=== PATIENT | male | born 1945 | race Caucasian/White ===

== ENCOUNTER 2016-09-29 10:33 | Emergency (ER) | payer MEDICARE, BC ==
[2016-09-29 10:54] VITALS: BP 136/81
--- NOTE | 2016-09-29 11:11 | EDM.PDOC ---
ED HPI Trauma - General Chief Complaint: Lower Extremity Injury/Pain Stated Complaint: PAIN BEHIND LT LEG/KNEE Time Seen by Provider: 09/29/16 11:04 Source: Reports: Patient, Family, RN notes reviewed History Limitations: Reports: No limitations - History of Present Illness INITIAL COMMENTS - FREE TEXT/NARRATIVE: 70-year-old gentleman presents emergency Department a complaint of left knee pain, he injured himself earlier today he fell off a piece of farm equipment and twisted his left knee he is experiencing pain and cannot bear weight, did not hit his head denies any loss of consciousness denies any pain other than the knee Allergies/ADRs: Allergies Sulfa (Sulfonamide Antibiotics) Allergy (Intermediate, Verified 09/29/16 10:53) bad rash Home Medications: Ambulatory Orders traZODone HCl [Trazodone HCl] 50 mg PO BEDTIME 08/07/14 [Confirmed 09/29/16] Hydrocodone/Acetaminophen [Hydrocodon-Acetaminophen 5-325] 1 tab PO ASDIRECTED 09/29/16 [Confirmed 09/29/16] Past Medical History HEENT History: Reports: Impaired vision Social & Family History - Tobacco Use Smoking Status *Q: Never Smoker Second Hand Smoke Exposure: No - Caffeine Use Caffeine Use: Reports: Coffee, Soda, Tea - Alcohol Use Days Per Week of Alcohol Use: 1 Number of Drinks Per Day: 3 Total Drinks Per Week: 3 - Recreational Drug Use Recreational Drug Use: No Review of Systems - Review of Systems Review Of Systems: See Below Constitutional: Reports: no symptoms Musculoskeletal: Reports: joint pain (left knee) Trauma Exam - Physical Exam Exam: See Below Text/Narrative:: examination of the left knee appreciate any erythema there is no edema I can't appreciate any specific joint line tenderness varus valgus maneuvers do show joint laxity however there is no pain elicited Anastasiya's is negative anterior drawer is negative Exam Limited By: No limitations General Appearance: Reports: alert, WD/WN, no apparent distress Respiratory Exam: Reports: no respiratory distress Course - Vital Signs Last Recorded V/S: Last Vital Signs Temp 99.1 F 09/29/16 10:51 Pulse 64 09/29/16 10:51 Resp 18 09/29/16 10:51 BP 136/81 09/29/16 10:51 Pulse Ox 98 09/29/16 10:51 Departure - Departure Time of Disposition: 12:12 Disposition: Home, Self-Care 01 Condition: good Clinical Impression: Strain of right knee Qualifiers: Encounter type: initial encounter Qualified Code(s): S86.911A - Strain of unspecified muscle(s) and tendon(s) at lower leg level, right leg, initial encounter Forms: ED Department Discharge Additional Instructions: use hydrocodone as needed for pain control, please followup with orthopedic clinic on of this week - Assessment/Plan Plan: Assessment Acuity = acute Site and laterality = right knee strain Etiology = secondary to trauma Manifestations = pain Location of injury = home Lab values = x-ray shows no fracture Plan : Discussed case with Dr. Quiñonez orthopedics recommended nonweightbearing crutches hydrocodone for pain control followup in orthopedic clinic on Patient was in agreement with the plan all questions were answered, they were instructed to return to the emergency department or call for worsening symptoms. This note was dictated using [employer] voice recognition software please call with any questions.
--- NOTE | 2016-09-29 11:45 | CR ---
Knee 3V Lt HISTORY: Twist injury COMPARISON: None FINDINGS: No fracture no effusion. Minimal loss of joint space in the medial compartment. No bony de structive process.
== END 2016-09-29 12:53 | disposition home or self-care (01) ==
LOC: JP.ED 10:33
DX: S86.911A Strain of unspecified muscle(s) and tendon(s) at lower leg level, right leg, initial encounter (principal); Z88.2 Allergy status to sulfonamides; Z79.899 Other long term (current) drug therapy; X50.1XXA Overexertion from prolonged static or awkward postures, initial encounter
CPT/HCPCS: 73562-26-LT; 73562-LT; 99283; 99284

== ENCOUNTER 2017-02-08 06:13 | Day surgery (SDC) | payer MEDICARE, BC ==
[2017-02-08] MEDS ORDERED: Sodium Chloride 0.9% 1,000 ML IV SCH (07:30)
[2017-02-08] MEDS ORDERED: fentaNYL 100 MCG/2 ML SDV ONE (07:37)
[2017-02-08] MEDS ORDERED: Midazolam 1 MG/ML 2 ML SDV ONE (07:37)
[2017-02-08] MEDS ORDERED: Propofol 200 MG/20 ML SDV ONE (07:37)
[2017-02-08 09:02] VITALS: BP 130/83
--- NOTE | 2017-02-08 15:41 | OR ---
DATE OF PROCEDURE: 02/08/2017 PROCEDURE: Esophagogastroduodenoscopy. FINDINGS: 1. Gastric polyp, completely removed using cold biopsy forceps. 2. 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 COMPLICATIONS: None. MAGNETIC LOCATER: None. ANESTHESIA: MAC. RISKS: Risks, benefits, alternatives, and limitations including, but not limited to infection, bleeding, and perforation were explained the patient and they wished to proceed. PROCEDURE IN DETAIL: The patient was placed in left lateral decubitus position. The EGD scope was then introduced and advanced atraumatically to the second part of the duodenum. The scope was brought back into the stomach and retroflexed. The patient was noted to have a hiatal hernia which was small. The patient was also noted to have a gastric polyp which was completely removed using cold biopsy forceps. The GE junction also had inflammation consistent with reflux disease. This was biopsied multiple times using cold biopsy forceps. No other abnormalities were noted in the esophagus. The patient tolerated the procedure well. Juve Mac MD /[id number]
== END 2017-02-08 09:08 | disposition home or self-care (01) ==
LOC: JP.SDS 06:13
PROVIDERS: ATTEND Surgery
DX: K22.70 Barrett's esophagus without dysplasia (principal); K31.7 Polyp of stomach and duodenum; K21.9 Gastro-esophageal reflux disease without esophagitis; Z88.2 Allergy status to sulfonamides; N18.9 Chronic kidney disease, unspecified
CPT/HCPCS: 43239; J2250; J2704; J3010; J7040; 88305

== ENCOUNTER 2017-12-09 06:17 | Day surgery (SDC) | payer MEDICARE, BC ==
[2017-12-09] MEDS ORDERED: Lactated Ringers 1,000 ML IV SCH (07:00)
[2017-12-09] MEDS ORDERED: Propofol 200 MG/20 ML SDV ONE (07:07)
[2017-12-09] MEDS ORDERED: Midazolam 1 MG/ML 2 ML SDV ONE (07:07)
[2017-12-09] MEDS ORDERED: fentaNYL 100 MCG/2 ML SDV ONE (07:07)
--- NOTE | 2017-12-09 08:46 | OR ---
DATE OF PROCEDURE: 12/09/2017 PROCEDURE: Colonoscopy. FINDINGS: 1. Diverticulosis, moderate, mostly limited to sigmoid colon, traditional pattern. 2. Very small polyps, approximately 3 mm, in sigmoid colon, completely removed using cold biopsy forceps. COMPLICATIONS: None. 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 ANESTHESIA: MAC. PREOPERATIVE DIAGNOSIS: Screening colonoscopy. POSTOPERATIVE DIAGNOSIS: Screening colonoscopy. RISKS: Risks, benefits, alternatives, and limitations including, but not limited to infection, bleeding, and perforation were explained to the patient who wished to proceed. PROCEDURE IN DETAIL: The patient was placed in left lateral decubitus position. Digital rectal exam was performed without abnormality. The scope was introduced and advanced atraumatically to the ileocecal valve. A photo was taken. The scope was brought back to the ascending, transverse, descending colon, and retroflexed. The aforementioned polyp was identified and completely removed. The diverticulosis would be described as moderate, limited to sigmoid colon without evidence of diverticulitis or bleeding. No abnormalities on retroflexion. The patient tolerated the procedure well. Juve Mac MD /[id number]
[2017-12-09 08:56] VITALS: BP 97/67
== END 2017-12-09 09:03 | disposition home or self-care (01) ==
LOC: JP.SDS 06:17
PROVIDERS: ATTEND Surgery
DX: Z12.11 Encounter for screening for malignant neoplasm of colon (principal); K63.5 Polyp of colon; K57.30 Diverticulosis of large intestine without perforation or abscess without bleeding; N18.9 Chronic kidney disease, unspecified; K22.70 Barrett's esophagus without dysplasia; K21.9 Gastro-esophageal reflux disease without esophagitis; Z90.5 Acquired absence of kidney; Z88.2 Allergy status to sulfonamides
CPT/HCPCS: G0121; J2250; J2704; J3010; J7120; 88305

== ENCOUNTER 2018-01-10 09:48 | Emergency (ER) | payer MEDICARE, BC ==
[2018-01-10 10:01] VITALS: BP 130/95
--- NOTE | 2018-01-10 11:10 | EDM.PDOC ---
ED HPI GENERAL MEDICAL PROBLEM - General Chief Complaint: General Stated Complaint: NAUSEA,SOB,NECK PAIN Time Seen by Provider: 01/10/18 10:45 Source of Information: Reports: Patient, Family History Limitations: Reports: No Limitations - History of Present Illness INITIAL COMMENTS - FREE TEXT/NARRATIVE: 72-year-old male with a variety of nonspecific complaints such as generalized malaise, intermittent epigastric discomfort, intermittent dyspnea with activity , lack of energy, neck pain and stiffness and mild intermittent headaches. This morning his eyes were briefly "fluttering" so he thought he should come in. He did just finish a 2 week course of antibiotics 8 days ago for a tick bite. He has no urinary symptoms, denies nausea or vomiting, denies chest pain or palpitations. He just doesn't feel good, he feels off. He denies any joint pains , swelling, redness, or rashes. Onset: Unknown/Unsure (Symptoms have been ongoing for weeks) Severity: Mild Associated Symptoms: Reports: Malaise, Shortness of Breath (With activity), Weakness. Denies: Confusion, Chest Pain, Cough, Diaphoresis, Fever/Chills, Headaches, Nausea/Vomiting, Rash neck Pain Score (Numeric/FACES): 5 - Related Data Allergies Allergy/AdvReac Type Severity Reaction Status Date / Time Sulfa (Sulfonamide Allergy Intermediate bad rash Verified 01/10/18 10:01 Antibiotics) Past Medical History HEENT History: Reports: Allergic Rhinitis, Impaired Vision Other HEENT History: wears glasses Gastrointestinal History: Reports: GERD, Hemorrhoids, Other (See Below) Other Gastrointestinal History: hx of mikhail's Genitourinary History: Reports: Chronic Renal Insuffiency, Prostate Disorder, Renal Calculus, Renal Disease Musculoskeletal History: Reports: Arthritis, Other (See Below) Other Musculoskeletal History: bilat shoulder pain Oncologic (Cancer) History: Reports: Prostate Other Oncologic History: metastatic ca, radiation - Infectious Disease History Infectious Disease History: Reports: Chicken Pox - Past Surgical History HEENT Surgical History: Reports: Cataract Surgery, Tonsillectomy Male Surgical History: Reports: Kidney Stone Extraction, Nephrectomy, Prostate Biopsy, Other (See Below) Other Male Surgeries/Procedures: left kidney removed Dermatological Surgical History: Reports: None Social & Family History - Family History Family Medical History: Noncontributory - Tobacco Use Smoking Status *Q: Never Smoker - Caffeine Use Caffeine Use: Reports: Coffee - Recreational Drug Use Recreational Drug Use: No ED ROS GENERAL - Review of Systems Review Of Systems: See Below Constitutional: Reports: Malaise, Weakness. Denies: Fever, Chills, Weight Loss HEENT: Reports: Other (Eyes were "fluttering" this morning) Respiratory: Reports: Shortness of Breath. Denies: Pleuritic Chest Pain (With activity only), Cough Cardiovascular: Reports: Dyspnea on Exertion. Denies: Chest Pain, Palpitations GI/Abdominal: Reports: Abdominal Pain (Epigastric area, intermittent). Denies: Nausea, Vomiting : Reports: No Symptoms Musculoskeletal: Reports: Neck Pain. Denies: Leg Pain, Muscle Pain, Muscle Stiffness Skin: Reports: No Symptoms Neurological: Denies: Headache Psychiatric: Reports: No Symptoms ED EXAM, GENERAL - Physical Exam Exam: See Below Exam Limited By: No Limitations General Appearance: Alert, No Apparent Distress Eye Exam: Bilateral Eye: EOMI, Normal Inspection (No jaundice) Neck: Supple Respiratory/Chest: No Respiratory Distress, Other (A few expiratory wheezes are heard left posterior lung, possibly decreased breath sounds as well) Cardiovascular: Regular Rate, Rhythm. No: Extra Beats GI/Abdominal: Soft, Non-Tender (I cannot reproduce his abdominal symptoms no guarding or rebound or focal tenderness) Extremities: Normal Inspection. No: Pedal Edema Neurological: Alert, Oriented Psychiatric: Normal Affect, Normal Mood Skin Exam: Warm, Dry Course - Vital Signs Last Recorded V/S: Last Vital Signs Temp 98.2 F 01/10/18 09:59 Pulse 72 01/10/18 09:59 Resp 18 01/10/18 09:59 BP 130/95 H 01/10/18 09:59 Pulse Ox 98 01/10/18 09:59 - Orders/Labs/Meds Labs: Laboratory Tests 01/10/18 01/10/18 Range/Units 10:45 10:45 WBC 8.4 (4.5-11.0) K/uL RBC 4.83 (4.30-5.90) M/uL Hgb 13.8 (12.0-15.0) g/dL Hct 42.7 (40.0-54.0) % MCV 88 (80-98) fL MCH 29 (27-31) pg MCHC 32 (32-36) % Plt Count 175 (150-400) K/uL Neut % (Auto) 80 H (36-66) % Lymph % (Auto) 11 L (24-44) % [place] % (Auto) 9 H (2-6) % Eos % (Auto) 1 L (2-4) % Baso % (Auto) 0 (0-1) % ESR 11 (0-20) mm/hr Sodium 136 L (140-148) mmol/L Potassium 4.4 (3.6-5.2) mmol/L Chloride 104 (100-108) mmol/L Carbon Dioxide 27 (21-32) mmol/L Anion Gap 9.4 (5.0-14.0) mmol/L BUN 21 H (7-18) mg/dL Creatinine 1.5 H (0.8-1.3) mg/dL Est Cr Clr Drug Dosing 46.64 mL/min Estimated GFR (MDRD) 46 L (>60) Glucose 99 (74-106) mg/dL Calcium 8.1 L (8.5-10.1) mg/dL Total Bilirubin 0.4 (0.2-1.0) mg/dL AST 16 (15-37) U/L ALT 25 (12-78) U/L Alkaline Phosphatase 72 (46-116) U/L C-Reactive Protein 0.09 (0.0-0.3) mg/dL Total Protein 5.8 L (6.4-8.2) g/dL Albumin 2.9 L (3.4-5.0) g/dL Globulin 2.9 (2.3-3.5) g/dL Albumin/Globulin Ratio 1.0 L (1.2-2.2) TSH, Ultra Sensitive 2.810 (0.358-3.740) uIU/mL - Re-Assessments/Exams Free Text/Narrative Re-Assessment/Exam: 01/10/18 11:10 A two-view chest x-ray was obtained which was normal. CBC, CMP, sedimentation rate, CRP and TSH were also obtained. 01/10/18 12:35 Labs were reassuring. Some chronic renal insufficiency is present which was present in the past. TSH was normal, CRP was normal, sedimentation rate was normal. A cervical spine x-ray was done which showed mild arthritic changes. Departure - Departure Time of Disposition: 12:45 Disposition: Home, Self-Care 01 Condition: Good Clinical Impression: Neck pain, bilateral - Discharge Information Instructions: Neck Exercises Referrals: Mike Juarez MD [Primary Care Provider] - Forms: ED Department Discharge Care Plan Goals: Consider a daily dose of ibuprofen or naproxen along with Zantac or omeprazole to protect your stomach. You may have to wait for the effect of doxycycline to completely wear off, and consider exercising your neck for strengthening. Return anytime if worsening or concerns.
--- NOTE | 2018-01-10 11:23 | CR ---
CHEST: 2 view CLINICAL HISTORY:Dyspnea COMPARISON:None FINDINGS: Heart and pulmonary vascularity appear normal. There are atherosclerotic changes in the ao rta.. Lung eng are clear.. IMPRESSION: No acute cardiopulmonary process
--- NOTE | 2018-01-10 12:34 | CR ---
Cervical Spine 2V or 3V CLINICAL HISTORY: Neck pain, no trauma FINDINGS: The vertebral body heights are intact. The disc spaces at C5-6 and C6-7. There is mild acco mpanying spondylosis. Alignment is maintained. There is some osteoarthritic changes in the apophyseal joints. IMPRESSION: Degenerative disc changes in the lower cervical spine Osteoarthritic changes diffusely throughout the apophyseal joints
== END 2018-01-10 12:45 | disposition home or self-care (01) ==
LOC: JP.ED 09:48
DX: M54.2 Cervicalgia (principal); Z88.2 Allergy status to sulfonamides
CPT/HCPCS: 36415; 71046; 71046-26; 72040; 72040-26; 80053; 84443; 85025; 85651; 86140; 99284

== ENCOUNTER 2019-05-09 02:43 | Emergency (ER) | payer MEDICARE, BC ==
[2019-05-09] MEDS ORDERED: diphenhydrAMINE 25 MG Cap PO ONE (02:59)
[2019-05-09 03:03] VITALS: BP 141/95; PULSE 76
[2019-05-09] MEDS ORDERED: predniSONE 20 MG Tab PO ONE (03:05)
[2019-05-09] MEDS ORDERED: Famotidine 20 MG Tab PO ONE (03:05)
--- NOTE | 2019-05-09 03:11 | EDM.PDOC ---
ED HPI GENERAL MEDICAL PROBLEM - General Chief Complaint: Skin Complaint Stated Complaint: RASH Time Seen by Provider: 05/09/19 03:00 Source of Information: Reports: Patient, Old Records, RN History Limitations: Reports: No Limitations - History of Present Illness INITIAL COMMENTS - FREE TEXT/NARRATIVE: 73 yo male presents with itching since last Wednesday that is getting worse. Had [place] in [place]. Sx's are worse in the forearms. Has tried a few different topical OTC agents without much relief. No difficulty breathing or swallowing. Here with his . Onset: Gradual Onset Date: 05/06/19 Duration: Day(s):, Getting Worse Location: Reports: Generalized (forearms worse.) Quality: Reports: Other (itching) Severity: Severe Improves with: Reports: None Worsens with: Reports: Other (time) Context: Reports: Other (See HPI) Associated Symptoms: Reports: No Other Symptoms Treatments GRIEVANCE COORDINATOR: Reports: Other (see below) (OTC topical agents) Left Hand Pain Score (Numeric/FACES): 7 - Related Data Allergies Allergy/AdvReac Type Severity Reaction Status Date / Time Sulfa (Sulfonamide Allergy Intermediate bad rash Verified 01/10/18 10:01 Antibiotics) Home Meds: Home Meds Gabapentin [Neurontin] 300 mg PO DAILY 05/09/19 [History] Past Medical History HEENT History: Reports: Allergic Rhinitis, Impaired Vision Other HEENT History: wears glasses Gastrointestinal History: Reports: GERD, Hemorrhoids, Other (See Below) Other Gastrointestinal History: hx of mikhail's Genitourinary History: Reports: Chronic Renal Insuffiency, Prostate Disorder, Renal Calculus, Renal Disease Musculoskeletal History: Reports: Arthritis, Other (See Below) Other Musculoskeletal History: bilat shoulder pain Oncologic (Cancer) History: Reports: Prostate Other Oncologic History: metastatic ca, radiation - Infectious Disease History Infectious Disease History: Reports: Chicken Pox - Past Surgical History HEENT Surgical History: Reports: Cataract Surgery, Tonsillectomy Male Surgical History: Reports: Kidney Stone Extraction, Nephrectomy, Prostate Biopsy, Other (See Below) Other Male Surgeries/Procedures: left kidney removed Dermatological Surgical History: Reports: None Social & Family History - Family History Family Medical History: Noncontributory - Tobacco Use Smoking Status *Q: Never Smoker - Caffeine Use Caffeine Use: Reports: Coffee - Alcohol Use Days Per Week of Alcohol Use: 1 Number of Drinks Per Day: 2 Total Drinks Per Week: 2 - Recreational Drug Use Recreational Drug Use: No ED ROS GENERAL - Review of Systems Review Of Systems: ROS reveals no pertinent complaints other than HPI. Skin: Reports: Pruritis, Rash. Denies: Urticaria ED EXAM, SKIN/RASH Exam: See Below Exam Limited By: No Limitations General Appearance: Alert, WD/WN, No Apparent Distress Eye Exam: Bilateral Eye: Normal Inspection Ears: Normal External Exam, Normal Canal, Hearing Grossly Normal Nose: Normal Inspection, No Blood Throat/Mouth: Normal Inspection, Normal Lips, Normal Oropharynx, Normal Voice, No Airway Compromise Head: Atraumatic, Normocephalic Neck: Normal Inspection Respiratory/Chest: No Respiratory Distress, Lungs Clear, Normal Breath Sounds, No Accessory Muscle Use Cardiovascular: Regular Rate, Rhythm, No Edema Extremities: Normal Inspection, Normal Range of Motion, Non-Tender, No Pedal Edema Neurological: Alert, Oriented, CN II-XII Intact, Normal Cognition, No Motor/ Sensory Deficits Psychiatric: Normal Affect, Normal Mood Skin: Warm, Dry, Intact, Erythema (very slight, mainly to the forearms bilat.), Rash (minimal rash to some areas of the dorsum of his hands.). No: Normal Color , No Rash Location, Skin: Upper Extremity, Right, Upper Extremity, Left Characteristics: Erythematous (minimal) Associated features: No: Warmth, Tenderness, Swelling, Induration Course - Vital Signs Last Recorded V/S: Last Vital Signs Temp 36.7 C 05/09/19 03:00 Pulse 76 05/09/19 03:00 Resp 14 05/09/19 03:00 BP 141/95 H 05/09/19 03:00 Pulse Ox 94 L 05/09/19 03:00 - Orders/Labs/Meds Orders: Active Orders 24 hr Category Date Time Status Famotidine [Pepcid] Med 05/09/19 03:05 Once 20 mg PO ONETIME ONE predniSONE Med 05/09/19 03:05 Once 40 mg PO ONETIME ONE Meds: Medications Discontinued Medications Generic Name Dose Route Start Last Admin Trade Name Freq PRN Reason Stop Dose Admin Diphenhydramine HCl 75 mg 05/09/19 02:59 05/09/19 03:05 Benadryl PO 05/09/19 03:00 75 mg ONETIME ONE Administration Departure - Departure Time of Disposition: 15:25 Disposition: Home, Self-Care 01 Condition: Fair Clinical Impression: Generalized pruritus Contact dermatitis Qualifiers: Contact dermatitis type: allergic Contact dermatitis trigger: non-food plants Qualified Code(s): L23.7 - Allergic contact dermatitis due to plants, except food - Discharge Information *PRESCRIPTION DRUG MONITORING PROGRAM REVIEWED*: No *COPY OF PRESCRIPTION DRUG MONITORING REPORT IN PATIENT MICHAEL: No Instructions: Contact Dermatitis, [id number] Referrals: Mike Juarez MD [Primary Care Provider] - Additional Instructions: Trim fingernails short to reduce the risk of infection/skin damage. Take diphenhydramine 50-75 mg every 4 hrs as needed. Take famotidine 20 mg every 12 hrs. Take prednisone as directed. Apply calamine lotion liberally to affected areas. Recheck in the clinic as needed. Avoid driving when taking the diphenhydramine. - My Orders Last 24 Hours: My Active Orders 05/09/19 03:05 Famotidine [Pepcid] 20 mg PO ONETIME ONE predniSONE 40 mg PO ONETIME ONE - Assessment/Plan Last 24 Hours: My Active Orders 05/09/19 03:05 Famotidine [Pepcid] 20 mg PO ONETIME ONE predniSONE 40 mg PO ONETIME ONE
== END 2019-05-09 03:24 | disposition home or self-care (01) ==
LOC: JP.ED 02:43
DX: L23.7 Allergic contact dermatitis due to plants, except food (principal); N18.9 Chronic kidney disease, unspecified; Z88.2 Allergy status to sulfonamides
CPT/HCPCS: 99282; A9270-GY

== ENCOUNTER 2020-06-25 10:14 | Emergency (ER) | payer MEDICARE, BC ==
[2020-06-25] MEDS ORDERED: Alum Hydrox/Mag Hydrox/Simeth 15 ML, Lidocaine 2% 15 ML PO ONE ×2 (10:43)
--- NOTE | 2020-06-25 10:47 | EDM.PDOC ---
ED HPI GENERAL MEDICAL PROBLEM - General Chief Complaint: Chest Pain Stated Complaint: CHEST PAIN Time Seen by Provider: 06/25/20 10:39 Source of Information: Reports: Patient, Family, RN Notes Reviewed History Limitations: Reports: No Limitations - History of Present Illness INITIAL COMMENTS - FREE TEXT/NARRATIVE: 74-year-old gentleman presents emergency department with a complaint of chest pain, states been going on about 3 to 4 days does have a family history with his father myocardial infarction in his 60s he is never had any heart troubles had a stress test about 15 years ago, he has no nausea no vomiting no shortness of breath he has pain which is tender to palpation over the left breast it is intermittent and then he has epigastric pain as well does have a history of a Sari 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 - Related Data Allergies Allergy/AdvReac Type Severity Reaction Status Date / Time Sulfa (Sulfonamide Allergy Intermediate bad rash Verified 06/25/20 10:27 Antibiotics) Home Meds: Home Meds Cyanocobalamin (Vitamin B-12) [Vitamin B-12] 1 tab PO DAILY 06/25/20 [History] Past Medical History HEENT History: Reports: Allergic Rhinitis, Impaired Vision Other HEENT History: wears glasses Gastrointestinal History: Reports: GERD, Hemorrhoids, Other (See Below) Other Gastrointestinal History: hx of mikhail's Genitourinary History: Reports: Chronic Renal Insuffiency, Prostate Disorder, Renal Calculus, Renal Disease Musculoskeletal History: Reports: Arthritis, Other (See Below) Other Musculoskeletal History: bilat shoulder pain Oncologic (Cancer) History: Reports: Prostate Other Oncologic History: metastatic ca, radiation - Infectious Disease History Infectious Disease History: Reports: Chicken Pox - Past Surgical History HEENT Surgical History: Reports: Cataract Surgery, Tonsillectomy GI Surgical History: Reports: Appendectomy, Colonoscopy, EGD, Hernia Repair/Other Male Surgical History: Reports: Kidney Stone Extraction, Nephrectomy, Prostate Biopsy, Other (See Below) Other Male Surgeries/Procedures: left kidney removed Musculoskeletal Surgical History: Reports: Shoulder Surgery Oncologic Surgical History: Reports: None Dermatological Surgical History: Reports: None Social & Family History - Family History Family Medical History: No Pertinent Family History - Tobacco Use Tobacco Use Status *Q: Never Tobacco User Second Hand Smoke Exposure: No - Caffeine Use Caffeine Use: Reports: Coffee - Recreational Drug Use Recreational Drug Use: No ED ROS GENERAL - Review of Systems Review Of Systems: See Below Constitutional: Reports: No Symptoms HEENT: Reports: No Symptoms Respiratory: Reports: No Symptoms Cardiovascular: Reports: Chest Pain GI/Abdominal: Reports: Abdominal Pain. Denies: Nausea, Vomiting : Reports: No Symptoms ED EXAM, GENERAL - Physical Exam Exam: See Below Exam Limited By: No Limitations General Appearance: Alert, WD/WN, No Apparent Distress Respiratory/Chest: No Respiratory Distress, Lungs Clear, Normal Breath Sounds, No Accessory Muscle Use, Other (Tenderness over the left breast area) Cardiovascular: Regular Rate, Rhythm, No Murmur GI/Abdominal: Normal Bowel Sounds, Soft, No Distention, Tender (Tender epigastric region) Course - Vital Signs Last Recorded V/S: Last Vital Signs Temp 97.4 F 06/25/20 10:35 Pulse 65 06/25/20 10:58 Resp 12 06/25/20 10:35 BP 126/79 06/25/20 10:58 Pulse Ox 96 06/25/20 10:58 - Orders/Labs/Meds Orders: Active Orders 24 hr Category Date Time Status Cardiac Monitoring [RC] .As Directed Care 06/25/20 10:43 Active EKG Documentation Completion [RC] ASDIRECTED Care 06/25/20 10:43 Active EKG 12 Lead [EK] Stat Ther 06/25/20 10:43 Ordered Labs: Laboratory Tests 06/25/20 06/25/20 Range/Units 10:55 10:55 WBC 7.3 (4.5-11.0) K/uL RBC 5.03 (4.30-5.90) M/uL Hgb 14.2 (12.0-15.0) g/dL Hct 44.8 (40.0-54.0) % MCV 89 (80-98) fL MCH 28 (27-31) pg MCHC 32 (32-36) % Plt Count 213 (150-400) K/uL Neut % (Auto) 76 H (36-66) % Lymph % (Auto) 15 L (24-44) % Bracken % (Auto) 7 H (2-6) % Eos % (Auto) 2 (2-4) % Baso % (Auto) 1 (0-1) % Sodium 137 L (140-148) mmol/L Potassium 5.2 (3.6-5.2) mmol/L Chloride 104 (100-108) mmol/L Carbon Dioxide 26 (21-32) mmol/L Anion Gap 12.2 (5.0-14.0) mmol/L BUN 21 H (7-18) mg/dL Creatinine 1.4 H (0.8-1.3) mg/dL Est Cr Clr Drug Dosing 49.29 mL/min Estimated GFR (MDRD) 50 L (>60) Glucose 100 (74-106) mg/dL Calcium 8.5 (8.5-10.1) mg/dL Total Bilirubin 0.5 (0.2-1.0) mg/dL AST 18 (15-37) U/L ALT 26 (12-78) U/L Alkaline Phosphatase 90 (46-116) U/L Troponin I < 0.017 (0.000-0.056) ng/mL Total Protein 6.8 (6.4-8.2) g/dL Albumin 3.5 (3.4-5.0) g/dL Globulin 3.3 (2.3-3.5) g/dL Albumin/Globulin Ratio 1.1 L (1.2-2.2) Meds: Medications Discontinued Medications Generic Name Dose Route Start Last Admin Trade Name Freq PRN Reason Stop Dose Admin Al Hydroxide/Mg Hydroxide 15 0 ml 06/25/20 10:43 06/25/20 10:49 ml/ Lidocaine HCl 15 ml PO 06/25/20 10:44 15 ml ONETIME ONE Administration Departure - Departure Time of Disposition: 11:37 Disposition: Home, Self-Care 01 Condition: Fair Clinical Impression: Gastroesophageal reflux disease Qualifiers: Esophagitis presence: esophagitis presence not specified Qualified Code(s): K21.9 - Gastro-esophageal reflux disease without esophagitis Instructions: Gastroesophageal Reflux Disease, Adult Referrals: Mike Juarez MD [Primary Care Provider] - Forms: ED Department Discharge Additional Instructions: Please follow-up with Dr. Juarez and schedule an EGD, recommend starting either a product like Zantac or cimetidine or Protonix or Nexium some type of acid leidy for symptomatic relief Sepsis Event Note (ED) - Evaluation Sepsis Screening Result: No Definite Risk - Focused Exam Vital Signs: Vital Signs Temp Pulse Resp BP Pulse Ox 06/25/20 10:58 65 126/79 96 06/25/20 10:35 97.4 F 68 12 118/79 98 06/25/20 10:25 97.4 F 68 12 118/79 98 - My Orders Last 24 Hours: My Active Orders 06/25/20 10:43 Cardiac Monitoring [RC] .As Directed EKG Documentation Completion [RC] ASDIRECTED EKG 12 Lead [EK] Stat - Assessment/Plan Last 24 Hours: My Active Orders 06/25/20 10:43 Cardiac Monitoring [RC] .As Directed EKG Documentation Completion [RC] ASDIRECTED EKG 12 Lead [EK] Stat Plan: Assessment Acuity = acute Site and laterality = gastroesophageal reflux disease Etiology = unknown history of Ruff's Manifestations = none Location of injury = Home Lab values = CBC, CMP, troponin all within normal limits except for creatinine elevated 1.4 consistent with chronic renal failure stage G3 a, EKG demonstrates a sinus rhythm there is no ST elevations or depression chest x-ray shows no acute coronary pulmonary process Plan He had good relief with the GI cocktail provided in the ED plan is to follow-up with his primary he has not had an EGD done in some time This note was dictated using [employer] voice recognition software please call with any questions on syntax or grammar.
[2020-06-25 10:59] VITALS: BP 126/79; PULSE 65
--- NOTE | 2020-06-25 11:21 | CR ---
CHEST: Portable 06/25/2020 at 1054 CLINICAL HISTORY:Chest pain COMPARISON:January 2018 FINDINGS: Heart size and pulmonary vascularity are normal. Patient has a large retrocardiac hiatal hernia. No infiltrates are seen. There is some nodularity in the right upper lobe which was seen on prior study. There are atherosclerotic changes in the aorta. IMPRESSION: No acute cardiopulmonary process Large hiatal hernia
== END 2020-06-25 11:56 | disposition home or self-care (01) ==
LOC: JP.ED 10:14
DX: K21.9 Gastro-esophageal reflux disease without esophagitis (principal); N18.9 Chronic kidney disease, unspecified; Z88.2 Allergy status to sulfonamides
CPT/HCPCS: 36415; 71045; 80053; 84484; 85025; 93005; 93010; 99285; A9270

== ENCOUNTER 2020-07-30 06:34 | Day surgery (SDC) | payer MEDICARE, BC ==
[2020-07-30] MEDS ORDERED: Sodium Chloride 0.9% 1,000 ML IV SCH (07:00)
[2020-07-30] MEDS ORDERED: Propofol 200 MG/20 ML SDV ONE (07:18)
[2020-07-30] MEDS ORDERED: fentaNYL 100 MCG/2 ML SDV ONE (07:18)
[2020-07-30] MEDS ORDERED: Midazolam 1 MG/ML 2 ML SDV ONE (07:18)
[2020-07-30 08:40] VITALS: BP 117/81; PULSE 66
--- NOTE | 2020-07-30 09:18 | OR ---
DATE OF PROCEDURE: 07/30/2020 SURGEON: Juve aMc MD PROCEDURE: Esophagogastroduodenoscopy. FINDINGS: 1. Recurrence of hiatal hernia. 2. Inflammation of the GE junction concerning for reflux disease. COMPLICATIONS: None. MATTRESS PACKER: None. ANESTHESIA: MAC. PREOPERATIVE DIAGNOSIS: Dysphagia. POSTOPERATIVE DIAGNOSIS: Dysphagia. RISKS: Risks, benefits, alternatives, and limitations including, but not limited to infection, bleeding, and perforation were explained to the patient who wished to proceed. PROCEDURE IN DETAIL: The patient was placed in left lateral decubitus position. EGD scope was introduced and advanced atraumatically to the second part of the duodenum. No evidence of duodenitis or ulceration. In the stomach, there was no evidence of gastritis or ulceration. On retroflexion, there was a recurrence of the hiatal hernia which appeared to be large. The GE junction also showed mild inflammation concerning for reflux disease and this was biopsied in all 4 quadrants. The remaining esophagus was inspected without abnormality. The patient tolerated the procedure well. Juve Mac MD /[id number]
== END 2020-07-30 08:51 | disposition home or self-care (01) ==
LOC: JP.SDS 06:34
PROVIDERS: ATTEND Surgery
DX: K29.70 Gastritis, unspecified, without bleeding (principal); K44.9 Diaphragmatic hernia without obstruction or gangrene; N18.30 Chronic kidney disease, stage 3 unspecified; R13.10 Dysphagia, unspecified
CPT/HCPCS: 43239; J2250; J2704; J3010; J7030

== ENCOUNTER 2023-11-22 07:04 | Day surgery (SDC) | payer MEDICARE ==
[2023-11-22] MEDS ORDERED: Propofol 200 MG/20 ML SDV ONE (07:27)
[2023-11-22] MEDS ORDERED: fentaNYL 100 MCG/2 ML SDV ONE (07:27)
[2023-11-22] MEDS: Lactated Ringers 1,000 ML IV SCH (07:36)
[2023-11-22 09:21] VITALS: BP 123/74; PULSE 56
== END 2023-11-22 09:30 | disposition home or self-care (01) ==
LOC: JP.SDS 07:04
PROVIDERS: ATTEND Family Medicine
DX: K21.9 Gastro-esophageal reflux disease without esophagitis (principal); N18.30 Chronic kidney disease, stage 3 unspecified
CPT/HCPCS: 43235; J2704; J3010; J7120; 00731-QZ

== ENCOUNTER 2024-03-27 16:49 | Emergency (ER) | payer BC, MEDICARE ==
[2024-03-27 17:55] VITALS: BP 117/66; PULSE 74
== END 2024-03-27 19:36 | disposition home or self-care (01) ==
LOC: JP.ED 16:49
DX: S41.112A Laceration without foreign body of left upper arm, initial encounter (principal); N18.9 Chronic kidney disease, unspecified; Z90.49 Acquired absence of other specified parts of digestive tract; Z88.2 Allergy status to sulfonamides; Z88.5 Allergy status to narcotic agent; Z88.8 Allergy status to other drugs, medicaments and biological substances; W01.0XXA Fall on same level from slipping, tripping and stumbling without subsequent striking against object, initial encounter
CPT/HCPCS: 99282